=== PATIENT | male | born 1945 | race Native Hawaiian/Other Pacific Islander ===

== ENCOUNTER 2021-01-21 16:20 | Outpatient (CLI) | payer OTHER | END 2021-01-21 22:43 | disposition home or self-care (01) | LOC: LAB 16:20 | PROVIDERS: ATTEND Internal Medicine | DX: R19.7 Diarrhea, unspecified (principal) | CPT/HCPCS: 82270; 83630; 87015; 87045; 87324; 87328; 87329; 87449; 87899 ==

== ENCOUNTER 2021-02-24 14:08 | Outpatient (CLI) | payer OTHER | END 2021-02-24 23:58 | disposition home or self-care (01) | LOC: CT 14:08 | PROVIDERS: ATTEND Internal Medicine | DX: R14.0 Abdominal distension (gaseous) (principal); R19.7 Diarrhea, unspecified; R10.84 Generalized abdominal pain ==

== ENCOUNTER 2022-09-13 15:20 | Outpatient (CLI) | payer OTHER | END 2022-09-13 19:18 | disposition home or self-care (01) | LOC: RAD 15:20 | PROVIDERS: ATTEND Internal Medicine | DX: Z09 Encounter for follow-up examination after completed treatment for conditions other than malignant neoplasm (principal); Z86.16 Personal history of COVID-19; R06.02 Shortness of breath; R05.9 Cough, unspecified; R09.81 Nasal congestion ==

== ENCOUNTER 2023-02-12 16:55 | Emergency (ER) | payer OTHER ==
[~2023-02-12] VITALS: Ht 177.8 cm; Wt 124.7 kg
[2023-02-12 19:45] VITALS: BP 141/80; TEMP 98.6
== END 2023-02-12 19:45 | disposition home or self-care (01) ==
LOC: ED 16:55
DX: S16.1XXA Strain of muscle, fascia and tendon at neck level, initial encounter (principal); V89.2XXA Person injured in unspecified motor-vehicle accident, traffic, initial encounter
CPT/HCPCS: 93005; 96374; 96375; 99284; J1885; J2360

== ENCOUNTER 2023-02-14 16:35 | Outpatient (CLI) | payer OTHER | END 2023-02-14 19:24 | disposition home or self-care (01) | LOC: RAD 16:35 | PROVIDERS: ATTEND Nurse Practitioner Family | DX: M79.605 Pain in left leg (principal); M79.604 Pain in right leg; R60.0 Localized edema ==